=== PATIENT | female | born 2000 | race Two or more races ===

== ENCOUNTER 2025-02-04 21:52 | Emergency (ER) | payer OTHER ==
[~2025-02-04] VITALS: Ht 154.9 cm; Wt 94.8 kg
[2025-02-04] MEDS ORDERED: FAMOTIDINE/PF 20 MG/2 ML VIAL IV PUSH STA (22:17)
[2025-02-04] MEDS ORDERED: ONDANSETRON HCL 2 MG/ML VIAL IV STA (22:17)
[2025-02-04] MEDS ORDERED: IPRATROPIUM/ALBUTEROL SULFATE 3 ML AMPUL.NEB IH SCH (22:30)
[2025-02-04] MEDS ORDERED: METHYLPREDNISOLONE SOD SUCC 40 MG VIAL IV SCH (22:30)
[2025-02-04 23:12] LABS: BASO % 0.3 % (0.1-1.2); EOS # 0.24 (0.04-0.54); EOS % 2.2 % (0.7-7.0); LYMPH # 2.58 (1.18-3.74); LYMPH % 24.2 % (19.3-53.1); MEAN PLATELET VOLUME 9.40 fl (9.4-12.4); MONO # 0.63 (0.24-0.82); MONO % 5.9 % (4.7-12.5); NEUT # 7.16 (1.56-6.13); NEUT % 67.0 % (34.0-71.1); RED CELL DISTRIBUTION WIDTH 12.4 % (11.6-14.4)
[2025-02-04 23:37] LABS: ALT/SGPT 22.0 U/L (12-78); AST/SGOT 11.0 U/L (15-37); BILIRUBIN TOTAL 0.37 mg/dL (0.3-1.2); BUN CREA RATIO 21.0 (7.0-25.0); CREATININE SERUM 0.68 mg/dL (0.55-1.02); GFR 107.22; GLOBULINA 4.0 G/DL (2.4-3.5); GLUCOSE FASTING 103.0 mg/dL (65-100); OSMOLALITY SERUM 284.0 MOSM/KG (275-295)
[2025-02-05 00:14] LABS: COVID-19 AG NEGATIVE (NEGATIVE)
[2025-02-05] MEDS ORDERED: ZITHROMAX500 MG PO (00:46)
[2025-02-05] MEDS ORDERED: MEDROLPACK PO (00:46)
[2025-02-05] MEDS ORDERED: IPRAT-ALBUT 0.5-3 ML IH (00:46)
[2025-02-05] MEDS ORDERED: TUSNEL LIQUID178 ML PO (00:46)
== END 2025-02-05 00:56 | disposition home or self-care (01) ==
LOC: ER 23:11
DX: J45.909 Unspecified asthma, uncomplicated (principal); R06.09 Other forms of dyspnea; Z20.822 Contact with and (suspected) exposure to COVID-19

== ENCOUNTER 2025-05-23 11:48 | Inpatient (IN) | payer OTHER ==
[~2025-05-23] VITALS: Ht 154.9 cm; Wt 83.5 kg
[~2025-05-23 11:48] MED LIST: IPRAT-ALBUT 0.5-3 ML IH; MEDROLPACK PO; TUSNEL LIQUID178 ML PO; ZITHROMAX500 MG PO
[2025-05-23] MEDS ORDERED: [UNRECOGNIZED DRUG - OTHER] PO (12:07)
--- NOTE | 2025-05-23 12:07 | NUR ---
PACIENTE FEMINA ALERTA Y ORIENTADA POR 3, REFIERE NAUSEAS, DIARREAS INTOLERABLES, DOLOR GASTRICO, SE LE GABE S/V Y SE UBICA PARA SER EVALUADA.
[2025-05-23] MEDS ORDERED: FAMOTIDINE/PF 20 MG/2 ML VIAL IV ONE (12:30)
[2025-05-23] MEDS ORDERED: HYOSCYAMINE SULFATE 0.125 MG TAB.SUBL SL ONE (12:30)
[2025-05-23] MEDS ORDERED: 0.9 % SODIUM CHLORIDE 1,000 ML IV SCH (12:30)
[2025-05-23] MEDS ORDERED: METOCLOPRAMIDE HCL 10 MG in DEXTROSE 5 % IN WATER 50 ML IV ONE (12:30)
[2025-05-23] MEDS ORDERED: MORPHINE SULFATE 2 MG/ML SYRINGE IV ONE (12:30)
[2025-05-23] MEDS ORDERED: FAMOTIDINE/PF 20 MG/2 ML VIAL ONE (13:38)
[2025-05-23] MEDS ORDERED: METOCLOPRAMIDE HCL 5 MG/ML VIAL ONE (13:38)
[2025-05-23] MEDS ORDERED: HYOSCYAMINE SULFATE 0.125 MG TAB.SUBL ONE (13:38)
[2025-05-23 13:50] LABS: BASO % 0.2 % (0.1-1.2); EOS # 0.15 (0.04-0.54); EOS % 2.5 % (0.7-7.0); LYMPH # 1.00 (1.18-3.74); LYMPH % 16.4 % (19.3-53.1); MEAN PLATELET VOLUME 8.90 fl (9.4-12.4); MONO # 0.45 (0.24-0.82); MONO % 7.4 % (4.7-12.5); NEUT # 4.49 (1.56-6.13); NEUT % 73.3 % (34.0-71.1); RED CELL DISTRIBUTION WIDTH 12.0 % (11.6-14.4)
--- NOTE | 2025-05-23 14:03 | NUR ---
PACIENTE EVALUADA POR QUIEN ORDENA TRATAMIENTO MEDICO, SE LE ORIENTA A PACIENTE SOBRE EL MISMO Y REFIERE ENTENDER, SE LE COLECTAN MUESTRAS, SE CANALIZA Y SE LE ADMINSITRAN MEDICAMENTOS KENA ORDEN. SE LE HACE ENTREGA A PACIENTE DE ENVASE PARA COLECTA DE U/A. PENDIENTE ESTUDIO
[2025-05-23 14:18] LABS: ALT/SGPT 38.0 U/L (12-78); AST/SGOT 27.0 U/L (15-37); BILIRUBIN TOTAL 0.5 mg/dL (0.3-1.2); BILIRUBIN,CONJUGATED 0.15 mg/dL (0.0-0.2); BUN CREA RATIO 22.0 (7.0-25.0); CREATININE SERUM 0.67 mg/dL (0.55-1.02); GFR 109.07; GLUCOSE FASTING 81.0 mg/dL (65-100); OSMOLALITY SERUM 277.0 MOSM/KG (275-295)
[2025-05-23 14:57] LABS: COVID-19 AG NEGATIVE (NEGATIVE)
[2025-05-23] MEDS ORDERED: PIPERACILLIN/TAZOBACTAM SODIUM 3.375 GM VIAL IV ONE ×2 (15:00→15:07)
--- NOTE | 2025-05-23 15:31 | NUR ---
PTE ALERTA Y ORIENTADA X 3 ESFERAS QUIEN REFIERE DOLOR ABDOMINAL Y PREGUNTA SI PUEDE BEBER O COMER.SE LE ORIENTA SOBRE DIETA NPO,SE ADMINISTRA MEDICAMENTO Y SE EXTRAEN MUESTRAS BAJO MEDIDAS ASEPTICAS.
[2025-05-23 16:39] LABS: URINE APPEARANCE Cloudy; URINE BILIRRUBIN Negative (NEGATIVE); URINE BLOOD Negative; URINE COLOR Yellow; URINE GLUCOSE Negative (NEGATIVE); URINE LEUKOCYTE Small; URINE NITRATE Positive; URINE PROTEIN Trace (NEGATIVE); URINE UROBILINOGEN 0.2 E.U./dl
[2025-05-23 16:41] LABS: URINE EPITHELIAL CELLS 181.5 uL (0.0-38.8); URINE RBC 3.5 uL (0.0-20.8); URINE WBC 66.4 uL (0.0-23.2)
[2025-05-23] MEDS ORDERED: MORPHINE SULFATE 4 MG/ML CARTRIDGE IV PRN (17:00)
[2025-05-23 17:33] LABS: URINE BACTERIA > 9821.5 uL (0.0-1933); URINE CAST 0.29 uL (0.0-1.40); URINE KETONE 80 (NEGATIVE)
[2025-05-23 17:39] LABS: TYPE CELLS SQUAMOUS; URINE CRYSTALS FEW /HPF
[2025-05-23 17:47] LABS: URINE MUCUS MODERATE
[2025-05-23] MEDS ORDERED: PIPERACILLIN/TAZOBACTAM SODIUM 3.375 GM in 0.9 % SODIUM CHLORIDE 100 ML IV SCH (18:00)
[2025-05-23] MEDS ORDERED: ONDANSETRON HCL 2 MG/ML VIAL ONE (20:00)
[2025-05-23] MEDS ORDERED: ONDANSETRON HCL 2 MG/ML VIAL IV ONE (20:00)
[2025-05-24 01:15] VITALS: BP 117/65; O2SAT 98
[2025-05-24 01:33] LABS: BASO % 0.1 % (0.1-1.2); EOS # 0.02 (0.04-0.54); EOS % 0.2 % (0.7-7.0); LYMPH # 0.78 (1.18-3.74); LYMPH % 9.3 % (19.3-53.1); MEAN PLATELET VOLUME 9.30 fl (9.4-12.4); MONO # 0.49 (0.24-0.82); MONO % 5.8 % (4.7-12.5); NEUT # 7.07 (1.56-6.13); NEUT % 84.4 % (34.0-71.1); RED CELL DISTRIBUTION WIDTH 12.1 % (11.6-14.4)
[2025-05-24] MEDS ORDERED: PANTOPRAZOLE SODIUM 40 MG/VIAL VIAL IV SCH (09:00)
[2025-05-24 09:28] VITALS: BP 102/63; O2SAT 99
== END 2025-05-24 15:33 | disposition home or self-care (01) | DRG 399 ==
LOC: ER 11:48 → O/R 17:17 → SURG 17:17
PROVIDERS: General Practice; ADMIT Student in an Organized Health Care Education/Training Program; ATTEND Student in an Organized Health Care Education/Training Program
PROC: BW21ZZZ Computerized Tomography (CT Scan) of Abdomen and Pelvis (ICD-10-PCS; 2025-05-23)
PROC: 0DTJ4ZZ Resection of Appendix, Percutaneous Endoscopic Approach (ICD-10-PCS; principal; 2025-05-23 21:00)
DX: K35.80 Unspecified acute appendicitis (principal); J45.909 Unspecified asthma, uncomplicated; F12.90 Cannabis use, unspecified, uncomplicated; L65.9 Nonscarring hair loss, unspecified; E06.9 Thyroiditis, unspecified

== ENCOUNTER 2025-05-27 19:00 | Emergency (ER) | payer OTHER ==
[~2025-05-27] VITALS: Ht 154.9 cm; Wt 84.8 kg
[~2025-05-27 19:00] MED LIST changes: +[UNRECOGNIZED DRUG - OTHER] PO
[2025-05-27 21:06] VITALS: BP 121/80; O2SAT 100
[2025-05-27] MEDS ORDERED: 0.9 % SODIUM CHLORIDE 1,000 ML IV SCH (21:30)
[2025-05-27] MEDS ORDERED: FAMOTIDINE/PF 20 MG/2 ML VIAL IV ONE (21:30)
[2025-05-27] MEDS ORDERED: GUAIFENESIN 200 MG/10 ML BLIST.PACK PO ONE (21:30)
[2025-05-27] MEDS ORDERED: ACETAMINOPHEN 500 MG GEL..CAP PO ONE (21:30)
[2025-05-27 22:04] LABS: BASO % 0.1 % (0.1-1.2); EOS # 0.03 (0.04-0.54); EOS % 0.4 % (0.7-7.0); LYMPH # 1.06 (1.18-3.74); LYMPH % 14.2 % (19.3-53.1); MEAN PLATELET VOLUME 9.20 fl (9.4-12.4); MONO # 0.48 (0.24-0.82); MONO % 6.4 % (4.7-12.5); NEUT # 5.88 (1.56-6.13); NEUT % 78.6 % (34.0-71.1); RED CELL DISTRIBUTION WIDTH 11.9 % (11.6-14.4)
[2025-05-27 22:40] LABS: ALT/SGPT 82.0 U/L (12-78); AST/SGOT 43.0 U/L (15-37); BILIRUBIN TOTAL 0.26 mg/dL (0.3-1.2); BUN CREA RATIO 16.0 (7.0-25.0); CREATININE SERUM 0.73 mg/dL (0.55-1.02); GFR 98.79; GLOBULINA 4.1 G/DL (2.4-3.5); GLUCOSE FASTING 102.0 mg/dL (65-100); OSMOLALITY SERUM 281.0 MOSM/KG (275-295)
[2025-05-28] MEDS ORDERED: IPRATROPIUM/ALBUTEROL SULFATE 3 ML AMPUL.NEB IH ONE (00:30)
[2025-05-28 01:37] LABS: URINE APPEARANCE Cloudy; URINE BILIRRUBIN Negative (NEGATIVE); URINE BLOOD Negative; URINE COLOR Yellow; URINE GLUCOSE Negative (NEGATIVE); URINE LEUKOCYTE Moderate; URINE NITRATE Negative; URINE PROTEIN Negative (NEGATIVE); URINE UROBILINOGEN 0.2 E.U./dl
[2025-05-28 01:41] LABS: URINE EPITHELIAL CELLS 92.9 uL (0.0-38.8); URINE RBC 7.0 uL (0.0-20.8); URINE WBC 197.0 uL (0.0-23.2)
[2025-05-28 01:44] LABS: TYPE CELLS SQUAMOUS; URINE CAST 0.00 uL (0.0-1.40); URINE KETONE 40 (NEGATIVE)
[2025-05-28] MEDS ORDERED: IPRAT-ALBUT 0.5-3 ML IH (01:45)
[2025-05-28] MEDS ORDERED: ROBITUSSIN COU1 EACH PO (01:45)
[2025-05-28] MEDS ORDERED: ZITHROMAX TRI-500 MG PO (01:46)
== END 2025-05-28 03:31 | disposition home or self-care (01) ==
LOC: ER 19:00
PROVIDERS: Student in an Organized Health Care Education/Training Program
DX: J10.1 Influenza due to other identified influenza virus with other respiratory manifestations (principal); B34.9 Viral infection, unspecified; J45.909 Unspecified asthma, uncomplicated